=== PATIENT | female | born 1965 | race American Indian/Alaskan Native ===

== ENCOUNTER 2019-05-24 20:12 | Emergency (ER) | payer MEDICARE ==
[2019-05-24] MEDS ORDERED: ONDANSETRON 4 MG ODT TAB PO ONE (20:46)
[2019-05-24 21:15] LABS: Basophils # (Auto) 0.1 K/mm3 (0.0-0.1); Basophils % (Auto) 0.8 % (0.0-1.8); Eosinophils # (Auto) 0.1 K/mm3 (0.0-0.4); Eosinophils % (Auto) 0.9 % (0.0-4.3); Hematocrit 39.2 % (30.3-42.9); Hemoglobin 13.3 gm/dl (10.1-14.3); Lymphocytes # (Auto) 2.5 K/mm3 (1.2-5.4); Lymphocytes % (Auto) 30.1 % (13.4-35.0); Mean Corpuscular HGB Conc 34 % (30-34); Mean Corpuscular Volume 94 fl (79-97); Monocytes # (Auto) 0.8 K/mm3 (0.0-0.8); Monocytes % (Auto) 10.1 % (0.0-7.3); Platelet Count 298 K/mm3 (140-440); Red Blood Count 4.17 M/mm3 (3.65-5.03); Red Cell Distribution Width 12.9 % (13.2-15.2)
[2019-05-24 21:19] LABS: Bilirubin,Urine NEG (Negative); Blood,Urine NEG (Negative); Calcium Oxalate Crystals,Urine 1+; Color,Urine Yellow (Yellow); Mucus,Urine 1+ /HPF; Protein,Urine <15 mg/dL mg/dL (Negative); Urobilinogen,Urine < 2.0 mg/dL (<2.0)
[2019-05-24 21:25] LABS: Alanine Aminotransferase 31 units/L (7-56); Albumin 3.8 g/dL (3.9-5); BUN/Creatinine Ratio 20; Blood Urea Nitrogen 14 mg/dL (7-17); Calcium 8.8 mg/dL (8.4-10.2); Hemolysis Index 5
--- NOTE | 2019-05-24 22:45 | Emergency Department Report ---
HPI - General Chief Complaint: Nausea/Vomiting/Diarrhea Time Seen by Provider: 05/24/19 20:43 - HPI HPI: 53-year-old female presents to the emergency department from [place] but the exact reason for her visit here is not well known. Triage in [facility] shows that the patient reported some nausea and vomiting. The patient says that she asked to be sent to the emergency department but could not give me a reason as to why. She was recently brought to [facility] secondary to some depression with suicidal ideations and the patient admits this. 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 The patient is fixated on the fact that her clothes and personal belongings are at [place]. She does admit to some recent nausea without vomiting and some burning with urination. She denies any chest pain, abdominal pain, vaginal bleeding or discharge, fever. She has a past medical history of previous breast cancer, hypertension, high cholesterol, and a psychiatric history of anxiety and depression. ED Past Medical Hx - Past Medical History Previous Medical History?: Yes Hx Hypertension: Yes Hx of Cancer: Yes (Breast) Hx Psychiatric Treatment: (Anxiety; Depression) Additional medical history: Hypercholesteremia - Surgical History Past Surgical History?: Yes Hx Cholecystectomy: Yes Hx Breast Surgery: Yes - Social History Smoking Status: Never Smoker - Medications Home Medications: Home Medications Medication Instructions Recorded Confirmed Last Taken Type Ondansetron [Zofran Odt] 4 mg PO Q8HR PRN #12 tab.rapdis 05/24/19 Unknown Rx ED Review of Systems ROS: Stated complaint: POSSIBLE 1013/NON COMPLIANT Other details as noted in HPI Comment: All other systems reviewed and negative Constitutional: denies: chills, fever Eyes: denies: eye pain, vision change ENT: denies: ear pain, throat pain Respiratory: denies: cough, shortness of breath Cardiovascular: denies: chest pain, palpitations Gastrointestinal: nausea. denies: vomiting Genitourinary: dysuria. denies: discharge Musculoskeletal: denies: back pain, arthralgia Skin: denies: rash, lesions Neurological: denies: headache, weakness Physical Exam - Physical Exam Vital Signs: Vital Signs 05/24/19 05/24/19 05/24/19 20:16 20:25 20:30 Temperature 97.6 F Pulse Rate 102 H 105 H Respiratory 16 14 Rate Blood Pressure 149/81 143/88 Blood Pressure 149/81 [Left] O2 Sat by Pulse 97 97 Oximetry Physical Exam: GENERAL: The patient is well-developed well-nourished. HENT: Normocephalic. Atraumatic. Patient has moist mucous membranes. Normal-appearing bilateral external ear canals and tympanic membranes. EYES: Extraocular motions are intact. Pupils equal reactive to light bilaterally. NECK: Supple. Trachea is midline. CHEST/LUNGS: Clear to auscultation. There is no respiratory distress noted. HEART/CARDIOVASCULAR: Regular. There is no tachycardia. ABDOMEN: Abdomen is soft, nontender. Patient has normal bowel sounds. There is no abdominal distention. SKIN: Skin is warm and dry. NEURO: The patient is awake, alert, and oriented. The patient is cooperative. The patient has no focal neurologic deficits. Normal speech. MUSCULOSKELETAL: There is no tenderness or deformity. There is no evidence of acute injury. ED Course Vital Signs 05/24/19 05/24/19 05/24/19 20:16 20:25 20:30 Temperature 97.6 F Pulse Rate 102 H 105 H Respiratory 16 14 Rate Blood Pressure 149/81 143/88 Blood Pressure 149/81 [Left] O2 Sat by Pulse 97 97 Oximetry ED Medical Decision Making - Lab Data Result diagrams: 05/24/19 20:54 05/24/19 20:54 - Medical Decision Making This patient presents from [place] and the only 2 complaints that the patient gives is some intermittent nausea without vomiting and some right ear discomfort. She also complains of some mild dysuria. Overall the patient keeps asking for her close and personal belongings. Her vital signs have been stable throughout her ED course. Labs are unremarkable including CBC, metabolic panel and urinalysis. She does not appear to have any otitis media or external ear infection. Patient does not appear to have any emergent medical condition that requires admission or any other immediate intervention. She will be discharged back to [facility] with a prescription for Zofran. - Differential Diagnosis Otitis media, otitis externa, UTI Critical Care Time: No Critical care attestation.: If time is entered above; I have spent that time in minutes in the direct care of this critically ill patient, excluding procedure time. ED Disposition Clinical Impression: Nausea, Otalgia of right ear, Medical clearance for psychiatric admission Disposition: DC- TO HOME OR SELFCARE Is pt being admited?: No Condition: Stable Instructions: Acute Nausea and Vomiting (ED), Earache (ED) Additional Instructions: Please follow-up with your primary care physician in the next few days. Please follow-up with any psychiatric referrals that you were given from [place]. Take your medications as prescribed. Return to the emergency department with any worsening of your symptoms or any acute distress. Prescriptions: Ondansetron [Zofran Odt] 4 mg PO Q8HR PRN #12 tab.rapdis PRN Reason: Nausea Referrals: HENRIETTA GR MD [Primary Care Provider] - 2-3 Days Time of Disposition: 22:51
[2019-05-24 23:18] VITALS: BP 140/79
== END 2019-05-24 23:45 | disposition home or self-care (01) ==
LOC: ED 20:12
DX: R11.2 Nausea with vomiting, unspecified (principal); H92.01 Otalgia, right ear; Z04.6 Encounter for general psychiatric examination, requested by authority; I10 Essential (primary) hypertension; F41.9 Anxiety disorder, unspecified; F32.9 Major depressive disorder, single episode, unspecified; Z90.49 Acquired absence of other specified parts of digestive tract; Z98.890 Other specified postprocedural states; Z79.899 Other long term (current) drug therapy; Z79.82 Long term (current) use of aspirin; Z88.0 Allergy status to penicillin; Z88.8 Allergy status to other drugs, medicaments and biological substances
CPT/HCPCS: 36415; 80053; 81001; 85025; Q0162